=== PATIENT | female | born 1970 | race Caucasian/White ===

== ENCOUNTER 2023-06-27 18:19 | Emergency (ER) | payer SELFPAY ==
[~2023-06-27] VITALS: Ht 160 cm; Wt 64.5 kg
[2023-06-27 18:37] VITALS: O2SAT 97
[2023-06-27 19:34] LABS: BASOPHILS % 0.7 % (0.0-2.0); EOSINOPHILS % 1.5 % (0.0-5.0); HEMATOCRIT. 40.7 % (36.0-48.0); HEMOGLOBIN. 13.8 g/dL (12.0-16.0); LYMPHOCYTES % 61.1 % (20.0-50.0); MEAN CORPUSCULAR HEMOGLOBIN 31.2 pg (28.0-32.0); MEAN CORPUSCULAR VOLUME 91.7 fL (81.0-99.0); MEAN PLATELET VOLUME 7.3 fl (7.4-10.4); MONOCYTES % 10.8 % (2.0-8.0); NEUTROPHILS % 25.9 % (40.0-76.0); PLATELET 231 x1000/uL (130-400); RED BLOOD CELL COUNT 4.44 mill/uL (4.2-5.4); WHITE BLOOD COUNT 2.8 x1000/uL (4.5-11.0)
[2023-06-27 19:47] LABS: ALANINE AMINOTRANSFERASE 24 IU/L (10-49); ALBUMIN 4.4 g/dL (3.2-4.8); ASPARTATE AMINOTRANSFERASE 31 IU/L (<34); BILIRUBIN TOTAL 0.3 mg/dL (0.1-1.0); CARBON DIOXIDE 27 mEq/L (21-32); CHLORIDE 104 mEq/L (98-107); CREATININE 0.7 mg/dL (0.6-1.0); GLUCOSE 151 mg/dL (70-105); POTASSIUM 3.3 mEq/L (3.5-5.1); PROTEIN TOTAL 6.8 g/dL (6.0-8.3); SODIUM 139 mEq/L (136-145); UREA NITROGEN BLOOD 7 mg/dL (9-23)
[2023-06-27 19:49] LABS: TROPONIN I HIGH SENSITIVITY < 4 ng/L (3.0-34)
[2023-06-27] MEDS ORDERED: IBUPROFEN 600MG TABLET PO ONE (23:00)
[2023-06-27] MEDS ORDERED: NAPR-1176 MT ×2 (23:32)
[2023-06-28] MEDS ORDERED: NAPR-1176 MT (02:44)
[2023-06-28 02:47] VITALS: BP 155/72; PULSE 82; RESP 15; TEMP 98
== END 2023-06-28 02:52 | disposition home or self-care (01) ==
LOC: ER 18:19
DX: M79.18 Myalgia, other site (principal); F19.90 Other psychoactive substance use, unspecified, uncomplicated; I10 Essential (primary) hypertension; Z98.890 Other specified postprocedural states
CPT/HCPCS: 36415; 71045; 73030; 80053; 84484; 85025; 93005; 99285